=== PATIENT | female | born 2000 | race Caucasian/White ===

== ENCOUNTER 2025-03-03 18:56 | Inpatient (IN) | payer BC ==
[~2025-03-03] VITALS: Ht 167.6 cm; Wt 107.2 kg
[2025-03-03 22:06] LABS: GLUCOMETER DEV NAME(LOC) POC.BV; POC SARS-COV2 AG, FIA NEGATIVE (NEGATIVE)
[2025-03-03 23:24] VITALS: BP 138/92; PULSE 82; RESP 18; TEMP 98.5; O2SAT 99
[2025-03-04] MEDS ORDERED: LOPERAMIDE HCL 2 MG CAPSULE PO PRN (10:00)
[2025-03-04] MEDS ORDERED: ONDANSETRON 4 MG TABLET PO PRN (10:00)
[2025-03-04] MEDS ORDERED: MAGNESIUM HYDROXIDE SUSPENSION 30 ML UDCUP PO PRN (10:00)
[2025-03-04] MEDS ORDERED: IBUPROFEN 600 MG TABLET PO PRN (10:00)
[2025-03-04] MEDS ORDERED: MAG HYDROX/ALUMINUM HYD/SIMETH ES 30 ML SUSPENSION UDCUP PO PRN (10:00)
[2025-03-04] MEDS ORDERED: DOCUSATE SODIUM 100 MG CAPSULE PO PRN (10:00)
[2025-03-04] MEDS ORDERED: BACITRACIN 28 GM OINTMENT TP PRN (10:00)
[2025-03-04] MEDS ORDERED: OMEPRAZOLE 20 MG CAPSULE PO PRN (10:00)
[2025-03-04] MEDS ORDERED: PETROLATUM,WHITE 28 GM JELLY TP PRN (10:00)
[2025-03-04] MEDS ORDERED: BENZOCAINE/MENTHOL [CEPACOL] LOZENGE PO PRN (10:00)
[2025-03-04] MEDS ORDERED: ALBUTEROL SULFATE HFA 90 MCG/PUFF 8 GM INHALER IH PRN (10:00)
[2025-03-04] MEDS: PROPRANOLOL HCL 20 MG TABLET PO SCH (11:13)
[2025-03-04] MEDS ORDERED: ARIP2TAB27 PO (11:37)
[2025-03-04] MEDS ORDERED: LAMO200T10 PO (11:37)
[2025-03-04 17:45] VITALS: BP 128/85; PULSE 85; RESP 18; TEMP 98.6; O2SAT 99
[2025-03-04] MEDS: ZOLPIDEM TARTRATE 10 MG TABLET PO PRN (20:14)
[2025-03-04 20:41] VITALS: BP 116/79; PULSE 67; RESP 17; TEMP 98.3; O2SAT 98
[2025-03-05 08:41] VITALS: BP 137/94; PULSE 82; RESP 17; TEMP 97.5; O2SAT 97
[2025-03-05 09:02] VITALS: RESP 18; O2SAT 97
[2025-03-05] MEDS: ACETAMINOPHEN 325 MG TABLET PO PRN (09:02)
[2025-03-05 10:02] VITALS: RESP 17; O2SAT 97
[2025-03-05 18:18] VITALS: BP 133/69; PULSE 63; RESP 17; TEMP 97.3; O2SAT 97
[2025-03-05 20:45] VITALS: BP 128/75; PULSE 68; RESP 17; TEMP 98.1; O2SAT 98
[2025-03-06 09:40] VITALS: BP 117/76; PULSE 114; RESP 18; TEMP 97.1; O2SAT 100
[2025-03-06] MEDS ORDERED: ARIP10TA38 PO (12:54)
[2025-03-06] MEDS ORDERED: LAMO-24 PO (12:56)
== END 2025-03-06 15:24 | disposition home or self-care (01) | DRG 885 ==
LOC: B2S 21:00
PROVIDERS: ADMIT Psychiatry & Neurology Psychiatry; ATTEND Psychiatry & Neurology Psychiatry
PROC: GZHZZZZ Group Psychotherapy (ICD-10-PCS; principal; 2025-03-04)
DX: F31.4 Bipolar disorder, current episode depressed, severe, without psychotic features (principal); R45.851 Suicidal ideations; Z20.822 Contact with and (suspected) exposure to COVID-19; E66.9 Obesity, unspecified; Z68.38 Body mass index [BMI] 38.0-38.9, adult; F29 Unspecified psychosis not due to a substance or known physiological condition; F41.9 Anxiety disorder, unspecified; F90.0 Attention-deficit hyperactivity disorder, predominantly inattentive type; G47.00 Insomnia, unspecified; K59.00 Constipation, unspecified; Z79.899 Other long term (current) drug therapy
CPT/HCPCS: Z7610